=== PATIENT | male | born 1990 | race Caucasian/White ===

== ENCOUNTER 2017-10-18 12:43 | Emergency (ER) | payer BC ==
[~2017-10-18] VITALS: Ht 182.9 cm; Wt 82.1 kg
[2017-10-18 13:04] VITALS: Ht 182.9 cm; Wt 82.1 kg
[2017-10-18 14:43] VITALS: BP 124/63
== END 2017-10-18 14:44 | disposition home or self-care (01) ==
LOC: ED 12:43
DX: S39.012A Strain of muscle, fascia and tendon of lower back, initial encounter (principal); X50.0XXA Overexertion from strenuous movement or load, initial encounter; X50.9XXA Other and unspecified overexertion or strenuous movements or postures, initial encounter; Y93.B9 Activity, other involving muscle strengthening exercises; Y99.8 Other external cause status; Y92.39 Other specified sports and athletic area as the place of occurrence of the external cause